=== PATIENT | female | born 1960 | race Asian ===

== ENCOUNTER 2017-05-20 12:02 | Emergency (ER) | payer OTHER ==
[~2017-05-20] VITALS: Ht 157.5 cm; Wt 46.3 kg
[2017-05-20 12:14] VITALS: Ht 157.5 cm; Wt 46.3 kg
[2017-05-20 15:11] VITALS: BP 118/72
== END 2017-05-20 15:11 | disposition home or self-care (01) ==
LOC: ED 12:02
DX: R10.13 Epigastric pain (principal)